=== PATIENT | male | born 1950 | race American Indian/Alaskan Native ===

== ENCOUNTER 2018-03-11 17:21 | Emergency (ER) | payer OTHER, MEDICARE ==
[2018-03-11 17:36] VITALS: BP 181/88
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
== END 2018-03-11 22:10 | disposition home or self-care (01) ==
LOC: ED 17:21
DX: M54.2 Cervicalgia (principal); V43.52XA Car driver injured in collision with other type car in traffic accident, initial encounter; Y93.89 Activity, other specified; Y92.89 Other specified places as the place of occurrence of the external cause; Y99.8 Other external cause status
CPT/HCPCS: 99282